=== PATIENT | male | born 1940 | race Caucasian/White ===

== ENCOUNTER 2017-09-25 08:16 | Day surgery (SDC) | payer OTHER, MEDICARE ==
--- NOTE | 2017-09-23 12:48 | EKG ---
Test Date: 2017-09-23 Test Time: 09:51:09 Dietitian Consultant: SHIVAM MEASUREMENT RESULTS: Intervals: Rate: 57 [place]: 162 QRSD: 80 QT: 434 QTc: 422 [place]: P: 84 [place]: 162 QRS: 64 T: 79 INTERPRETIVE STATEMENTS: Sinus bradycardia with sinus arrhythmia Otherwise normal ECG Compared to ECG 07/04/2005 07:56:41 No significant changes Electronically Signed On 09-23-17 12:47:53 CDT by Fransisco Hernandez
[2017-09-25] MEDS ORDERED: OXYMETAZOLINE HCL 0.05% 30ML NAS ONE ×3 (08:23→08:43)
[2017-09-25] MEDS: Ringers Lactate 1,000 ML IV ONE ×2 (08:43→09:44)
[2017-09-25] MEDS: LIDOCAINE 1% W/EPI 1:100,000 MDV 50 ML VIAL ONE ×2 (09:15→10:50)
[2017-09-25] MEDS ORDERED: NA CHLORIDE 0.9% 500 ML ONE (09:34)
[2017-09-25] MEDS ORDERED: FENTANYL CITR 100 MCG/2 ML ONE (09:38)
[2017-09-25] MEDS ORDERED: LIDOCAINE 2% MPF 5 ML VIAL ONE (09:38)
[2017-09-25] MEDS ORDERED: PROPOFOL 200 MG/20 ML VIAL IV ONE (09:38)
[2017-09-25] MEDS ORDERED: MIDAZOLAM HCL 2 MG/2 ML INJ ONE (09:39)
[2017-09-25] MEDS ORDERED: EPHEDRINE SULF 50 MG/10 ML SYR ONE (09:40)
[2017-09-25] MEDS ORDERED: GLYCOPYRROLATE 0.2 MG/ML SYR ONE (09:40)
[2017-09-25] MEDS ORDERED: ROCURONIUM 50 MG/5 ML VIAL IV ONE (09:40)
[2017-09-25] MEDS ORDERED: NEOSTIGMINE 1 MG/ML -5 ML SYRINGE ONE (10:04)
--- NOTE | 2017-09-25 10:56 | P.BOP ---
Preoperative diagnosis: CRS Postoperative diagnosis: same Primary procedure: B max antrostomy Secondary procedure: L ant ethmoidectomy Other procedure(s): L frontal sinusotomy Estimated blood loss: 20ml Specimen: sinus trimmings Findings: thick mucoid secretion in L max, L accessosory os Anesthesia: General Complications: None Implants: Xerogel Fluids & blood products: crystalloid 900ml Transferred to: Recovery Room Condition: Good
[2017-09-25] MEDS ORDERED: Ringers Lactate 1,000 ML IV ONE (11:00)
--- NOTE | 2017-09-25 17:02 | OP ---
Date of Procedure: 09/25/2017 Surgeon: Milana Baldwin MD Preoperative Diagnosis: Chronic rhinosinusitis. Postoperative Diagnosis: Chronic rhinosinusitis. Procedure: Nasal endoscopy with left frontal sinusotomy, left anterior ethmoidectomy, and bilateral maxillary antrostomy. Indication For Procedure: Mr. Del Toro had been treated with multiple courses of antibiotics and underwent a CT scan by the director auto demonstrating persistent mucosal thickening and obstruction of t he left maxillary sinus outflow tract, left anterior ethmoid cells and left frontal recess with a muc osal cyst of the right maxillary sinus, and a right septal deviation. The risks, benefits, and alter natives to the procedure were discussed with the patient, who agreed to proceed. Procedure In Detail: The patient was brought to the operating room. He was placed under general ane sthesia via oral endotracheal tube. The nasal hairs were trimmed and the nasal cavity was packed wit h Afrin-soaked pledgets. After time for effect, a 0-degree endoscope was used to perform a nasal end oscopy. The patient was noted to have a moderate size left accessory os. The bilateral uncinate pro cess and insertion point of the middle turbinate were injected with 1% lidocaine with epinephrine. A Clover was used to medialize the middle turbinate and the uncinate process was palpated with a maxill yue seeker. A backbiter and 90-degree Blakesley were used to remove the uncinate process and then ma xillary antrostomy was created. Thick clear mucoid secretions were filling the sinus and were suctio yamini. A 30-degree endoscope and curved suction were used to improve visualization of the lateral nasa l wall. A 90 degree Blakesley and microdebrider were used to remove tissue and connect the accessory os to the natural os in order to prevent further recirculation issues. The edges of the maxillary a ntrostomy were refined and the maxillary sinus was well visualized. There was no significant inflamm ation or purulence noted within the left maxillary sinus. A 0-degree endoscope was then again employ ed for initial dissection of the ethmoid. The ethmoid bulla was well visualized and carefully dissec josias using a straight curette. The bony partitions were removed using the straight 45 and 90-degree B lakesleys until the basal lamella was countered, but the basal lamella was not violated. Attention w as then turned to the region of the frontal recess. Using a 30, then 70 degree endoscope, the fronta l recess was carefully dissected by removal of bony partitions using a 90-degree Blakesley as well as a front to back and gyhq-an-ynqm Giraffe. After adequate dissection, the frontal sinus was well vis ualized. There was no significant inflammation within the frontal sinus mucosa and no retained secre tions were noted there within. Afrin-soaked pledgets were packed into the anterior ethmoid cavity an d middle meatus and attention was turned to the right side. On the right, a 0-degree endoscope was u sed to perform a nasal endoscopy. The middle turbinate was carefully medialized using a Clover and th e backbiter and 90-degree Blakesley were used to remove the uncinate process. The maxillary antrosto my was enlarged using a 90-degree Blakesley as well as a microdebrider until the os was of adequate s ize. The maxillary sinus was suctioned and there was no obvious or large cyst noted, though during d issection and suctioning, the cyst wall may have been removed. CT images were not available intraope ratively for direct comparison with regard to the exact location of the cyst. The middle meatus was packed with Afrin-soaked pledgets and attention was returned to the left. All the pledgets were kurtis monica. A small additional bony partition along the lamina papyracea was removed using a 90-degree Tommy esley and dissection was felt to be adequate and sufficient given the patient's preoperative CT findi ngs. The XeroGel dissolvable nasal packing was placed within the bilateral middle meatus and soaked with saline per flexible machining system machinist's recommendation. The nasopharynx was suctioned, and final examination revealed good hemostasis. The patient was then returned to care of anesthesia for awakening and extu bation in the operating room, which proceeded without difficulty. The patient was transferred to the recovery room in stable condition and will be discharged home later today in the care of his family with routine followup saline irrigations. No antibiotics are required at this time. The patient will follow up in [address] Baldwin for postoperative assessment. ASIYA/GHANSHYAM Voice ID: [id number] Report ID: [id number]
== END 2017-09-25 12:28 | disposition home or self-care (01) ==
LOC: OR 08:16
PROVIDERS: ATTEND Otolaryngology
PROC: 099Q8ZZ Drainage of Right Maxillary Sinus, Via Natural or Artificial Opening Endoscopic (ICD-10-PCS; 2017-09-25)
PROC: 099R8ZZ Drainage of Left Maxillary Sinus, Via Natural or Artificial Opening Endoscopic (ICD-10-PCS; 2017-09-25)
PROC: 099T8ZZ Drainage of Left Frontal Sinus, Via Natural or Artificial Opening Endoscopic (ICD-10-PCS; principal; 2017-09-25 09:30)
DX: J32.0 Chronic maxillary sinusitis (principal); J32.2 Chronic ethmoidal sinusitis; F17.210 Nicotine dependence, cigarettes, uncomplicated; J31.0 Chronic rhinitis; J32.8 Other chronic sinusitis
CPT/HCPCS: 31254; 31267; 31276; 88304; 88312; 93005; J2250; J2710; J3010

== ENCOUNTER 2022-04-04 08:08 | Day surgery (SDC) | payer OTHER, MEDICARE ==
[2022-04-03 13:08] LABS: Potassium 4.2 mmol/L (3.5-5.1)
[2022-04-04] MEDS: Ringers Lactate 1,000 ML IV ONE ×2 (09:15→10:40)
[2022-04-04] MEDS ORDERED: propofoL 200 MG/20 ML VIAL IV ONE (10:26)
[2022-04-04] MEDS ORDERED: LIDOCAINE 1% MPF 5 ML VIAL ONE (10:26)
--- NOTE | 2022-04-04 11:00 | ENDO RPT ---
[address], [address] EGD PROCEDURE REPORT EXAM DATE: 04/04/2022 PATIENT NAME: Harjinder Del Toro MR#: [id number] BIRTHDATE: 1940 ATTENDING: Tyrone Samson DR STATUS: outpatient POLICE SERGEANT: Malini Holliday RN and Rohit Paredes [facility] INDICATIONS: The patient is a 81 yr old Male here for an EGD due to Dysphagia and Esophageal Mass PROCEDURE PERFORMED: EGD with biopsy MEDICATIONS: Per Anesthesia. TOPICAL ANESTHETIC: none CONSENT: The patient understands the risks and benefits of the procedure and understands that these risks include, but are not limited to: sedation, allergic reaction, infection, perforation and/or bleeding. Alternative means of evaluation and treatment include, among others: physical exam, x-rays, and/or surgical intervention. The patient elects to proceed with this endoscopic procedure. DESCRIPTION OF PROCEDURE: During intra-op preparation period all mechanical medical equipment was checked for proper function. Hand hygiene and appropriate measures for infection prevention was taken. Procedure, possible complications, and alternatives including but not limited to the possibility of bleeding, perforation, tear, infection, sepsis, need for surgery, need for blood transfusion, and anesthesia related complications were explained to the patient. After the risks, benefits and alternatives of the procedure were thoroughly explained, Informed consent was verified, confirmed and timeout was successfully executed by the treatment team. The patient was placed in the left lateral position. The patient was anesthetized with topical anesthesia. Through the anesthetized oropharyngeal area, the scope was passed without any difficulty. The EG-[id number] ([id number]) endoscope was introduced through the mouth and advanced to the stomach antrum. Retroflexed views revealed no abnormalities. The gastroscope was then slowly withdrawn and removed. A mass was found in the mid esophagus. Located 27 cm from the point of entry. 27 cm Mass @ 27cm to 30cm Multiple biopsies were obtained and sent to pathology. With standard forceps, a biopsy was obtained and sent to pathology. Retained food was present in the lower esophagus. Large solid food burden in Distal esophagus, - No protective overtube available @ facility, thus airway was concern, and after discussing with anesthesia provider, he recommended to discontinue the procedure due and return when we have overtube and / or general anesthesia for procedure. ADVERSE EVENTS: There were no complications. IMPRESSIONS: 1. 27 cm A mass was found in the mid esophagus 2. Retained food was present in the lower esophagus RECOMMENDATIONS: 1. follow-up: office 1 week(s) 2. avoid NSAIDS 3. anti-reflux regimen 4. Liquid diet with protein shakes, do not recommend solids REPEAT EXAM: Tyrone Samson DR eSigned: Tyrone Samson DR 04/04/2022 10:59 AM cc: CPT CODES: ICD9 CODES: PATIENT NAME: Harjinder Del Toro MR#: [id number]
[2022-04-04 12:53] VITALS: TEMP 97.1
[2022-04-04 12:54] VITALS: BP 131/61; O2SAT 98
--- NOTE | 2022-04-04 13:15 | EKG ---
Test Date: 2022-04-04 Test Time: 08:38:33 Assistant Plant Control Operator: TANIA MEASUREMENT RESULTS: Intervals: Rate: 67 [place]: 160 QRSD: 78 QT: 422 QTc: 445 [place]: P: 77 [place]: 160 QRS: 65 T: 82 INTERPRETIVE STATEMENTS: Sinus rhythm with occasional premature ventricular complexes Minimal voltage criteria for LVH, may be normal variant Borderline ECG Compared to ECG 09/23/2017 09:51:09 Ventricular premature complex(es) now present Left ventricular hypertrophy now present Sinus bradycardia no longer present Sinus arrhythmia no longer present Electronically Signed On 04-04-22 13:14:18 HIGH SCHOOL ASSISTANT PRINCIPAL by [employer]
== END 2022-04-04 11:27 | disposition home or self-care (01) ==
LOC: OR 08:08
PROVIDERS: ATTEND Surgery
PROC: 0DB58ZX Excision of Esophagus, Via Natural or Artificial Opening Endoscopic, Diagnostic (ICD-10-PCS; principal; 2022-04-04 10:00)
DX: C7A.1 Malignant poorly differentiated neuroendocrine tumors (principal); R13.10 Dysphagia, unspecified; K22.9 Disease of esophagus, unspecified
CPT/HCPCS: 36415; 80048; 88305; 93005; J2001; J2704; J7120

== ENCOUNTER 2022-04-21 07:09 | Day surgery (SDC) | payer OTHER, MEDICARE ==
[2022-04-21] MEDS ORDERED: Ringers Lactate 1,000 ML IV ONE (07:40)
[2022-04-21] MEDS ORDERED: propofoL 200 MG/20 ML VIAL IV ONE (09:07)
[2022-04-21] MEDS ORDERED: LIDOCAINE 1% MPF 5 ML VIAL ONE (09:07)
[2022-04-21] MEDS ORDERED: ATROPINE SULFATE 1 MG/ML INJ ONE (09:29)
[2022-04-21] MEDS ORDERED: GLYCOPYRROLATE 0.2 MG/ML SYR ONE (09:29)
[2022-04-21 11:07] VITALS: BP 136/56; O2SAT 99
[2022-04-21 11:08] VITALS: TEMP 96.8
== END 2022-04-21 10:23 | disposition home or self-care (01) ==
LOC: OR 07:09
PROVIDERS: ATTEND Surgery
PROC: 0DBN8ZX Excision of Sigmoid Colon, Via Natural or Artificial Opening Endoscopic, Diagnostic (ICD-10-PCS; principal; 2022-04-21 08:30)
DX: Z12.11 Encounter for screening for malignant neoplasm of colon (principal); C7A.8 Other malignant neuroendocrine tumors; F17.210 Nicotine dependence, cigarettes, uncomplicated; K57.30 Diverticulosis of large intestine without perforation or abscess without bleeding; K64.4 Residual hemorrhoidal skin tags; D12.5 Benign neoplasm of sigmoid colon
CPT/HCPCS: 45385; 88305; J2704; J0461; J2001; J7120